=== PATIENT | female | born 1960 | race Caucasian/White ===

== ENCOUNTER 2018-06-29 21:41 | Emergency (ER) | payer OTHER, SELFPAY ==
[2018-06-29 21:43] VITALS: BP 154/102; PULSE 76; RESP 17; TEMP 36.3; O2SAT 98; BMI 46.7
--- NOTE | 2018-06-29 21:47 | DI.RAD.S_ITS ---
PROCEDURE: XR WRIST RT MIN 3V INDICATIONS: Fall with pain in right wrist TECHNIQUE: 4 views of the wrist were acquired. COMPARISON: None. FINDINGS: Bones: No comminuted fracture of the distal radius is noted. Fracture lucencies extend the radiocarpal and distal radial ulnar joints. Scaphoid view: Scaphoid is intact Soft tissues: No suspicious soft tissue calcifications. IMPRESSION: Comminuted, intra-articular distal radius fracture. Dictated by: Dian Roberts MD, PhD on 06/30/2018 at 8:28 Approved by: Dian Roberts MD, PhD on 06/30/2018 at 8:29
--- NOTE | 2018-06-29 21:48 | DI.RAD.S_ITS ---
PROCEDURE: XR FOREARM RT 2V INDICATIONS: Fall with pain to right wrist TECHNIQUE: 2 views of the forearm were acquired. COMPARISON: None. FINDINGS: Bones: Comminuted, intra-articular distal radius fracture noted. Soft tissues: No suspicious soft tissue calcifications or masses. IMPRESSION: Distal radius fracture. Dictated by: Dian Roberts MD, PhD on 06/30/2018 at 8:29 Approved by: Dian Roberts MD, PhD on 06/30/2018 at 8:30
[2018-06-29 22:20] VITALS: BP 139/81; PULSE 74; RESP 17; O2SAT 98
--- NOTE | 2018-06-29 22:26 | ED.UPPEXIN ---
HPI - Extremity Injury (Upper) General Chief Complaint: Extremity Injury, Upper Stated Complaint: Fell on ice, thinks broken R arm Time Seen by Provider: 06/29/18 22:22 Source: patient Mode of arrival: ambulatory Limitations: no limitations History of Present Illness HPI narrative: Patient is a 57-year-old female who presents with right pain in wrist deformity. She fell just prior to arrival on the ice. She fell into a puddle landing on her bottom with her hands out to catch her. No hip injury or shoulder elbow injury. MD complaint: injury to: right and wrist Onset (ago): minute(s) Context: fall and direct blow Associated symptoms: denies other symptoms Treatments prior to arrival: cold therapy Related Data Previous Rx's Medication Instructions Recorded metoprolol tartrate 50 mg tablet 50 mg PO BID #180 tab 11/28/17 oxybutynin chloride 5 mg tablet 5 mg PO BIDAC #180 tab 01/13/18 venlafaxine ER 75 mg 75 mg PO QDAY #90 tab 01/13/18 tablet,extended release 24 hr nortriptyline 25 mg capsule 25 mg PO BEDTIME #30 cap 06/09/18 hydrocodone-acetaminophen 1 tab PO Q4-6H PRN #14 tab 06/29/18 Allergies Allergy/AdvReac Type Severity Reaction Status Date / Time adhesive [ADHESIVE] Allergy Severe skin Verified 06/29/18 21:47 sloughing Review of Systems Review of Systems GENERAL: Denies chills,fever HEENT: Denies throat pain RESPIRATORY: Denies dyspnea, cough, wheezing CARDIOVASCULAR: Denies chest pain, palpitations GASTROINTESTINAL: Denies nausea, vomiting MUSCULOSKELETAL: see HPI SKIN: No rash, no laceration, no pruritus NEUROLOGIC: Denies weakness, dizziness, headache, numbness 8 point review of systems is negative except for those stated above and HPI PFSH Medical History Morbid obesity (Chronic) Sleep apnea (Chronic) Abnormal Pap smear of cervix (Resolved) Surgical History Surgical procedure planned (Resolved) Status post breast augmentation (~1999) Status post laparoscopic cholecystectomy (~2003) Family History Father CML (chronic myelocytic leukemia) IgG deficiency COPD (chronic obstructive pulmonary disease) Grandmother Dementia Mother Breast cancer Mother Dementia Grandfather Prostate cancer Sister Thyroid cancer Social History Smoking Status: Former smoker Family History Father CML (chronic myelocytic leukemia) IgG deficiency COPD (chronic obstructive pulmonary disease) Grandmother Dementia Mother Breast cancer Mother Dementia Grandfather Prostate cancer Sister Thyroid cancer Social History Smoking Status: Former smoker Comment: tetanus up-to-date Exam Initial Vital Signs Initial Vital Signs: Vital Signs Temperature 97.3 F L 06/29/18 21:43 Pulse Rate 76 06/29/18 21:43 Respiratory Rate 17 06/29/18 21:43 Blood Pressure 154/102 H 06/29/18 21:43 Pulse Oximetry 98 06/29/18 21:43 GENERAL: Well-appearing, well-nourished and in no acute distress. CARDIOVASCULAR: peripheral pulses in tact, cap refill <2 sec RESPIRATORY: No respiratory distress, speaks in full sentences without difficulty EXTREMITIES: Normal range of motion, no clubbing or edema. Neurovascularly intact Right upper extremity pain at wrist mild swelling neurovascularly intact able to move all fingers so painful. Elbow is nontender shoulder no deformity NEUROLOGICAL: Cranial nerves II through XII grossly intact. Normal gait and speech. SKIN: Warm, dry, no petechiae, no rashes or lesions. Procedures Orthopedic Splinting/Casting Injury #1: Side: right Upper Extremity Injury Location: wrist Upper Extremity Immobilizer: sugar tong splint Post splinting neuro exam: intact Post splinting vascular exam: intact Placed by: Nursing Course Orders Ordered: ED Orders 06/29/18 21:47 XR wrist RT min 3V Stat 06/29/18 21:48 XR forearm RT 2V Stat Discontinued Medications Hydrocodone Bitart/Acetaminophen (Vicodin Prepack) 1 bottle MISC SEEINSTR ONE Stop: 06/29/18 23:23 Last Admin: 06/29/18 23:23 Dose: 1 bottle Vital Signs - 8 hr 06/29/18 21:43 06/29/18 22:20 06/29/18 23:07 Temperature 97.3 F L Pulse Rate 76 74 78 Respiratory Rate 17 17 16 Blood Pressure 154/102 H Blood Pressure [Left Wrist] 139/81 147/85 H Pulse Oximetry 98 98 97 MDM - Extremity Injury (Upper) Imaging Data right wrist x-ray: Attestation: I personally reviewed and interpreted this imaging study as follows: My impression: distal radial fracture with minimal displacement and angulation right forearm x-ray: Attestation: I personally reviewed and interpreted this imaging study as follows: My impression: distal radial fracture Discharge Plan Departure Patient Disposition: Home Clinical Impression: Distal radius fracture, right Qualifiers: Encounter type: initial encounter Fracture type: closed Fracture morphology: unspecified fracture morphology Qualified Code(s): S52.501A - Unspecified fracture of the lower end of right radius, initial encounter for closed fracture Discharge Date/Time: 06/29/18 23:25 Interventions: ED Discharge Assessment Last Done: 06/29/18 23:25 Instructions: DI for Wrist Fracture Activity Restrictions/Additional Instructions: *You have been diagnosed with distal radius fracture *What to do: keep arm and splint at all times, use garbage bag while showering use sling while active, elevate, ice *Continue to take medications as directed hydrocodone 1-2 tablets every 6 hr if needed for severe pain *Follow up with your primary care provider in 2-3 days, call Orthopedics tomorrow to schedule follow-up appointment next week *Return to ER if you should have increasing numbness, tingling, pain or any new, worsening or concerning symptoms CONTROLLED SUBSTANCE DISCHARGE (Narcotoic/benzodiazepine/Flexeril/Phenergan) 1. You have been prescribed narcotic medications, it does have acetaminophen/Tylenol/paracetamol in it so do not take extra Tylenol or Tylenol containing products 2. Please understand that we cannot provide further refills of narcotics, benzodiazepines or controlled substances through the ED and her pain management will need to be through your provider. 3. While on these medications you cannot drive or operate heavy machinery. 4. You cannot sign legal documents or perform any duties such as this. 5. As long as you're taking opiate pain medications he should also be taking a stool softener such as Colace, Dulcolax, MiraLAX or prune juice, to help avoid constipation. Prescriptions: New hydrocodone-acetaminophen 5-325 mg tablet 1 tab PO Q4-6H PRN (Reason: pain) Qty: 14 RF: 0 No Action metoprolol tartrate 50 mg tablet 50 mg PO BID Qty: 180 RF: 1 nortriptyline 25 mg capsule 25 mg PO BEDTIME Qty: 30 RF: 1 venlafaxine 75 mg tablet extended release 24hr 75 mg PO QDAY Qty: 90 RF: 3 oxybutynin chloride 5 mg tablet 5 mg PO BIDAC Qty: 180 RF: 4 Referrals: [facility] [Provider Group] Viktoria Lan DO [Primary Care Provider] -
[2018-06-29 23:07] VITALS: BP 147/85; PULSE 78; RESP 16; O2SAT 97
[2018-06-29] MEDS: HYDROCODONE/ACET 5/325 PREPACK 1 BOTTLE MISC (23:23)
== END 2018-06-29 23:25 | disposition home or self-care (01) ==
PROVIDERS: Emergency Provider Emergency Medicine; Family Provider Family Medicine; PCP Family Medicine
DX: S52.501A Unspecified fracture of the lower end of right radius, initial encounter for closed fracture (principal); W01.0XXA Fall on same level from slipping, tripping and stumbling without subsequent striking against object, initial encounter
CPT/HCPCS: 29125; 73090; 73110; 99283

== ENCOUNTER 2018-07-04 07:37 | Day surgery (SDC) | payer OTHER, SELFPAY ==
[2018-07-03 08:38] VITALS: BMI 47.6
--- NOTE | 2018-07-04 08:06 | PM.HP.1 ---
History of Present Illness <Sherri Mercedes PA-C - Last Filed: 07/04/18 08:58> Date Patient Seen: 07/04/18 Chief complaint: 60068 RIGHT RADIUS FX Narrative: Patient seen in preoperative area after sustaining a right distal radius fracture on 06/29/2018 after falling on the ice. She fell into a puddle landing on her bottom with her hands out to catch her. She denies loss of consciousness, hip injury, shoulder, or elbow injury. She was seen in the ED on 06/29/18 and was placed in a sugar-tong splint. She denies numbness/tingling, SOB, or CP. Patient is right-hand dominant. She currently describes her pain as a 4/10 and is currently tolerating it. Dr. Baeza was consulted on this patient and determined that this injury should be fixed surgically due to the posterior comminution. Patient has a history of morbid obesity, reactive airway disease that is stable, obstructive sleep apnea with CPAP use, and HTN controlled with metoprolol. Patient works as a nurse at [employer]. Patient History <Sherri Mercedes PA-C - Last Filed: 07/04/18 08:58> Medical History Fibromyalgia (Chronic) Closed Colles' fracture of right radius (Acute 06/29/18) Former smoker (Acute) Reactive airway disease that is not asthma (Acute) Hypertension (Chronic) Morbid obesity (Chronic) Sleep apnea (Chronic) Abnormal Pap smear of cervix (Resolved) Surgical History Surgical procedure planned (Resolved) Status post breast augmentation (~1999) Status post laparoscopic cholecystectomy (~2003) Family History Father CML (chronic myelocytic leukemia) IgG deficiency COPD (chronic obstructive pulmonary disease) Grandmother Dementia Mother Breast cancer Mother Dementia Grandfather Prostate cancer Sister Thyroid cancer Social History household members: spouse Smoking Status: Former smoker alcohol intake: current Family & Social History Family History Father CML (chronic myelocytic leukemia) IgG deficiency COPD (chronic obstructive pulmonary disease) Grandmother Dementia Mother Breast cancer Mother Dementia Grandfather Prostate cancer Sister Thyroid cancer Tobacco & Substance use: Smoking Status Former smoker alcohol intake current alcohol intake frequency holiday/special occasion Substance Use Type does not use Meds <Sherri Mercedes PA-C - Last Filed: 07/04/18 08:58> Home Medications Medication Instructions Recorded Confirmed Type metoprolol tartrate 50 mg tablet 50 mg PO BID #180 tab 11/28/17 07/04/18 Rx oxybutynin chloride 5 mg tablet 5 mg PO BIDAC #180 tab 01/13/18 07/04/18 Rx venlafaxine ER 75 mg 75 mg PO QDAY #90 tab 01/13/18 07/04/18 Rx tablet,extended release 24 hr nortriptyline 25 mg capsule 25 mg PO BEDTIME #30 cap 06/09/18 Rx hydrocodone-acetaminophen 1 tab PO Q4-6H PRN #14 tab 06/29/18 Rx hydrocodone-acetaminophen 1 tab PO Q4HR PRN #30 tab 07/04/18 Rx Allergies Allergy/AdvReac Type Severity Reaction Status Date / Time adhesive [ADHESIVE] Allergy Severe skin Verified 06/29/18 21:47 sloughing Review of Systems <Sherri Mercedes PA-C - Last Filed: 07/04/18 08:58> Review of Systems All systems reviewed & are unremarkable except as noted in HPI and below Constitutional Constitutional: Denies chills, Denies fever(s), Denies frequent falls and Denies headache(s) ENT Ears, Nose, Mouth, and Throat: No headache(s) Cardiovascular Cardiovascular: Denies chest pain, Denies chest pain at rest, Denies chest pain with activity, Denies fainting, Denies shortness of breath and Denies shortness of breath with activity Respiratory Respiratory: Denies chest congestion, Denies cough, Denies dyspnea and Denies dyspnea on exertion Gastrointestinal Gastrointestinal: Denies abdominal pain, Denies coffee ground emesis, Denies nausea, Denies vomiting and Denies hematemesis Musculoskeletal Musculoskeletal: Reports arthralgias (right wrist), Reports joint swelling (right wrist) and Denies numbness Neurologic Neurologic: Denies confusion, Denies syncope, Denies frequent falls, Denies headache(s) and Denies numbness Psychiatric Psychiatric: Denies confusion Endocrine Endocrine: Reports system reviewed and no additional complaints, except as documented Hematologic/Lymphatic Hematologic/Lymphatic: Reports system reviewed and no additional complaints, except as documented Exam <POLLY Hillman Last Filed: 07/04/18 08:58> Narrative Exam Narrative: Well-developed well-nourished no acute distress. Alert and oriented x3. Resp Effort & Inspection: normal respiratory effort, able to speak in complete sentences, normal respiratory pattern, no audible wheezes, no cough, respiratory effort not decreased, not labored, no nasal flaring, no respiratory distress, no stridor, not tachypneic and no tracheal deviation Auscultation: clear to auscultation bilaterally Cardio Rate: regular rate Rhythm: regular rhythm Heart Sounds: S1 normal and S2 normal Other: Capillary refill <2 seconds GI Inspection: large pannus and obesity Palpation: soft and No guarding Auscultation: normal bowel sounds Neuro General: alert, oriented x3, moves all extremities, normal light touch, pain and propioception and CN's II-XI intact bilaterally Cranial Nerves: PERRL, able to rotate head bilaterally and able to elevate shoulders bilaterally Cognition: normal cognition Speech: speech normal Gait: normal gait Motor: muscle tone normal throughout Sensory Exam: no sensory deficits noted Extrem General: No normal to inspection (swelling right fingers, arm in sugar tong splint), capillary refill normal and No no joint enlargement (Swelling right wrist/hand) Right upper extremity: shoulder/upper arm Details: normal to inspection, axillary nerve sensory function normal and normal ROM; no tenderness and no swelling and wrist Details: abnormal to inspection, tenderness Location: of the distal radius, swelling Location: of the dorsal wrist and of the volar wrist and warmth Location: of the dorsal wrist and of the volar wrist Left upper extremity: normal to inspection, full ROM, normal capillary refill and no joint enlargement Right lower extremity: normal to inspection Left lower extremity: normal to inspection Objective <POLLY Hillman Last Filed: 07/04/18 08:58> Imaging Right wrist x-ray: My impression: Intra-articular distal radius fracture that is comminuted. No signs of scaphoid involvement. Radiologist's impression: Comminuted, intra-articular distal radius fracture. Assessment & Plan <Sherri Mercedes PA-C - Last Filed: 07/04/18 08:58> Assessment & Plan narrative: 1. Comminuted right distal radius fracture-patient has consented to a closed reduction and percutaneous pinning of the wrist by Dr. Baeza. The nature of the procedure including the risks, benefits, alternatives, postoperative course and expected outcome were discussed. Risks including but not limited to tendon injury, non-union of fracture, hardware breakage or failure, nerve injury, residual swelling, persistent incisional tenderness, or wound healing and infection were discussed in detail. We also discussed concerns regarding anesthesia. The patient will discuss their anesthesia further with the anesthesiologist. The patient verbalized understanding of these risks prior to consenting for surgery. She has been NPO since yesterday. She took her metoprolol last night. She will receive 3 g Ancef prior to surgery. She will be placed in a short-arm splint postoperatively. She will follow up with the office in 10-14 days for x-ray and re-examination. Time Spent With Patient Time with patient: 25 - 35 minutes Quality <Sherri Mercedes PA-C - Last Filed: 07/04/18 08:58> VTE Deep Vein Thrombosis/Pulmonary Embolism Present on Admission: No
[2018-07-04 08:15] VITALS: BP 213/124; PULSE 68; RESP 16; TEMP 37; O2SAT 94; BMI 47.6
[2018-07-04] MEDS: LACTATED RINGERS 1,000 ML 42 ML IV (08:37)
[2018-07-04] MEDS: CEFAZOLIN VIAL 3 GM in SODIUM CHLORIDE 0.9% 100 ML 200 ML IV (09:40)
--- NOTE | 2018-07-04 09:55 | SUR.OPER ---
Supine on padded OR bed, head on pillow, right arm on arm table under control of surgeon, left arm secured on padded arm boards at <90 degrees abduction, legs uncrossed, safety belt at thigh, tape over blanket over lower legs.
[2018-07-04] MEDS: BUPIVACAINE 0.5% (PF) VIAL 30 ML INJ (09:59)
[2018-07-04 10:19] VITALS: BP 161/97; PULSE 69; RESP 12; TEMP 37.1; O2SAT 96
[2018-07-04 10:25] VITALS: BP 132/68; PULSE 76; RESP 14; O2SAT 94
[2018-07-04] MEDS: fentaNYL 100 MCG/2 ML INJ 50 MCG IV ×2 (10:25→10:30)
[2018-07-04 10:30] VITALS: BP 126/75; PULSE 72; RESP 13; O2SAT 94
[2018-07-04] MEDS: HYDROMORPHONE 2 MG INJ 0.5 MG IV ×3 (10:37→10:50)
--- NOTE | 2018-07-04 10:37 | PM.OP.1 ---
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 She slipped and fell on ' Day sustaining the above-noted fracture. My office was contacted for definitive management. Due to the angulated nature of the fracture, closed reduction and percutaneous pin fixation was recommended. The patient has agreed to this after discussion the risks benefits and alternatives. Risks discussed included but were not limited to failure to improve either pain or function, pin tract infection, nerve damage, deep venous thrombosis, pulmonary embolism, myocardial infarction and . We did discuss the possibility of plate fixation however given the fracture morphology the outcome should be similar with this less invasive procedure. Surgeon: Ishaan Baeza Click Yes if Unassisted: Yes Anesthesia Type: General and Local Operative Notes Findings: [place] volar angulation of the distal radius which corrected to neutral with closed reduction. Closure Type: not applicable Specimen(s): none sent Prosthetic devices, grafts, tissues, transplants, or devices: Three 0.062 in K-wires were used. Applied: implant(s) Estimated Blood Loss (mL): 2 Blood products transfused: none Tourniquet time (min): 0 Procedure in detail: The patient was seen in the preoperative area where she confirmed her right hand was the operative site this was marked with my initials. She received preoperative antibiotics and was taken to the operating room and placed on the operating room table in supine position. She underwent induction of a general anesthetic. After the induction of satisfactory anesthesia, a tourniquet was placed about the proximal right arm and her splint was removed. The right arm was prepared from the fingertips to the tourniquet with ChloraPrep in the usual fashion and draped through sterile drapes. Under fluoroscopic guidance a reduction was performed. Adequate reduction was confirmed both in the AP and lateral views. Two K-wires were then placed from the dorsal distal fragment to the volar proximal fragment. These were loaded to increase volar pressure and improve the angulation of the fracture fragment. A 3rd K-wire was placed through the radial styloid. All 3 K-wires were placed by making a skin incision with a 15 blade, spreading to the bone with a hemostat and then placing the K-wire in an attempt to avoid damage of cutaneous nerves. The position of the K-wires and the fracture was confirmed as being satisfactory in the AP and lateral views on fluoroscopy. The K-wires were cut and bent. A hematoma block was performed with 10 mL 0.5% Marcaine for postoperative pain control. They were dressed with Xeroform and a drain sponge. An additional 4 x 4 was placed over the pins followed by cast padding and dorsal and volar slab splints. The tourniquet was never inflated. After the splint set up, the patient was transferred to the recovery room in good condition having tolerated the procedure well. Complications: none Condition: stable Disposition: PACU Plan for aftercare: The patient will be discharged today. She will follow up in my office in 2 weeks. At that visit she will be changed to a short-arm cast which she will wear for an additional 2 weeks. At that point the cast will be removed and the pins removed. She will then be placed back in a short-arm cast for an additional 4 weeks. At that point a decision will be made as to whether not she needs additional bracing for 1 more month.
[2018-07-04 10:40] VITALS: BP 120/75; PULSE 66; RESP 12; O2SAT 93
[2018-07-04] MEDS: HYDROCODONE/ACET 5/325 TABLET 1 TAB PO (10:52)
[2018-07-04] MEDS: ONDANSETRON 4 MG/2 ML INJ IV (10:59)
[2018-07-04 11:08] VITALS: BP 142/86; PULSE 69; RESP 15; TEMP 36.3; O2SAT 93
== END 2018-07-04 11:26 | disposition home or self-care (01) ==
PROVIDERS: PCP Family Medicine; Visit Provider Orthopaedic Surgery
PROC: (CPT 25606; principal; 2018-07-04 09:15)
DX: S52.531A Colles' fracture of right radius, initial encounter for closed fracture (principal); W00.0XXA Fall on same level due to ice and snow, initial encounter; E66.01 Morbid (severe) obesity due to excess calories; I10 Essential (primary) hypertension; G47.30 Sleep apnea, unspecified; M79.7 Fibromyalgia; Z87.891 Personal history of nicotine dependence
CPT/HCPCS: 25606; J0690; J1100; J1170; J2405; J2704; J3010

== ENCOUNTER 2019-04-06 06:21 | Day surgery (SDC) | payer OTHER, SELFPAY ==
[2019-04-03 09:04] VITALS: BMI 35.0
[2019-04-06] VITALS (9 sets, daily range): BP systolic 132–149; BP diastolic 78–93; PULSE 63–83; RESP 9–20; TEMP 36.1–36.5; O2SAT 93–97; BMI 51.8
--- NOTE | 2019-04-06 | PATH_ITS ---
[facility] Accession Number: [id number] . 01 Material submitted: . PART A: endometrium - ENDOMETRIAL CURETTINGS PART B: endocervix - ENDOCERVICAL CURETTINGS . 01 Clinical history: . HYSTEROSCOPY D/C . 02 Diagnosis: A. Endometrial Curettings: Portions of disordered proliferative endometrium with patchy regions of cystic atrophy; negative for glandular hyperplasia, cytologic atypia, and malignancy. . B. Endocervical Curettings: Polypoid fragments of lower uterine segment/endometrium with features of disordered proliferative endometrium and cystic atrophy; negative for glandular hyperplasia, cytologic atypia, and malignancy. Detached glandular fragments, possibly from endocervix. Please see comment. [facility] 04/09/2019 1127 Local . 02 Comment: Part B: Due to the scant nature of possible endocervical glandular elements in this biopsy, it may not be entirely technical account representative of this patient's endocervix. Additional sampling could be considered, if clinically appropriate. . 02 Electronically signed: . Joan Raymond MD, Pathologist NPI- [id number] . 01 Gross description: . Part A: ENDOMETRIAL CURETTINGS: Received in formalin are minute fragments of mucoid and hemorrhagic material measuring 0.7 x 0.7 x 0.3 cm in aggregate. Submitted in toto in 1 cassette. Part B: ENDOCERVICAL CURETTINGS: Received in formalin are minute fragments of mucoid and hemorrhagic material measuring 0.4 x 0.4 x 0.2 cm in aggregate. Submitted in toto in 1 cassette. /[facility] [place]/06[place] 1936 Local . 02 Pathologist provided ICD-10: N95.0 . 02 CPT . 527141, [id number] Performed at: 01 [facility] [address] [id number] MD John Neri MD Phone: [phone] Performed at: 02 [facility] [address] [place] [id number] MD Gunjan Javed MD Phone: [phone]
[2019-04-06] MEDS: LACTATED RINGERS 1,000 ML 100 ML IV (07:46)
--- NOTE | 2019-04-06 07:50 | PM.PREOP ---
Pre-operative Note Interval Note History & Physical reviewed/Exam performed by Physician: Yes Changes to H&P: No
--- NOTE | 2019-04-06 08:34 | P.OP_ITS ---
Operative Date/Time/Diagnoses Date of procedure: 04/06/19 Time of procedure: 07:50 Pre-op diagnosis: postmenopausal bleeding Post-op diagnosis: same Procedure & Clinicians Procedure: diagnostic hysteroscopy/D&C Same procedure as scheduled: Yes Indications: postmenopausal bleeding Surgeon: Blanca Allison Computer Game Designer: Esperanza Guevara Anesthesia Type: Sedation Operative Notes Findings: Small endometrial polyp on anterior wall in lower uterine segment. Copious endometrial tissue throughout cavity with scant calcifications at fundus. Normal vulva, normal post-cone biopsy cervix. Specimen(s): other (endocervical curettings, endometrial curettings) Estimated Blood Loss (mL): 0 Procedure in detail: IVF: 300ccs UOP: NA The patient was taken to the operating room after informed consent was obtained. She was placed in the dorsal lithotomy position and prepped and drapped in the normal sterile fashion. A speculum was placed in the vagina and a tenaculum used to grasp the anterior lip of the cervix. The cervix was dilated to 8mm with Hegar dilators without difficulty. The hysteroscopy was inserted using sorbitol as a distention medium, with the above findings visualized. The hysteroscope was removed and a gentle curettage performed, with removal of a moderate amount of endometrial tissue. The tenaculum was removed from the cervix with good hemostasis with brief pressure with a sponge stick. The speculum was removed from the vagina. The patient tolerated the procedure well. The patient was taken to the PACU in stable condition. Complications: none Post-operative Condition: stable Disposition: PACU
[2019-04-06] MEDS: fentaNYL 100 MCG/2 ML INJ IV (08:38)
[2019-04-06] MEDS: HYDROCODONE/ACET 5/325 TABLET 1 TAB PO (08:49)
--- NOTE | 2019-04-06 09:02 | SUR.PHASEI ---
report given to Ludy
--- NOTE | 2019-04-06 09:07 | SUR.PHASEI ---
Patient awake, A/O x 4. States she feels a little crampy but states pain is tolerable 2/10.
--- NOTE | 2019-04-06 09:33 | SUR.PHASEII ---
Scant amount of red drainage to monroe-pad. Patient states a little cramping. 2/10 pain. OK to DC home.
== END 2019-04-06 09:50 | disposition home or self-care (01) ==
PROVIDERS: Family Provider Family Medicine; PCP Family Medicine; Visit Provider Obstetrics & Gynecology
PROC: 0UDB8ZZ Extraction of Endometrium, Via Natural or Artificial Opening Endoscopic (ICD-10-PCS; CPT 58558; principal; 2019-04-06 07:45)
DX: N95.0 Postmenopausal bleeding (principal)
CPT/HCPCS: 58558; J1100; J1885; J2405; J2704; J3010

== ENCOUNTER → 2022-06-14 09:45 | Outpatient (CLI) | payer OTHER, SELFPAY ==
[2022-06-14 10:42] LABS: Add Manual Diff / Slide Review NO; Basophils Absolute Auto 100 /uL (0-100); Basophils Percent Auto 0.8 % (0-2); Eosinophils Absolute Auto 400 /uL (0-450); Eosinophils Percent Auto 4.2 % (2-4); Hematocrit 42.5 % (36-46); Hemoglobin 14.3 g/dL (12.0-16.0); Lymphocytes Absolute Auto 2200 /uL (1100-4500); Lymphocytes Percent Auto 24.7 % (25-40); Mean Corpuscular HGB Conc 33.6 % (30-36); Mean Corpuscular Hemoglobin 28.8 PG (26-34); Mean Corpuscular Volume 85.8 fL (80-100); Monocytes Absolute Auto 600 /uL (0-900); Monocytes Percent Auto 6.7 % (3-14); Neutrophils Absolute Auto 5600 /uL (1500-7000); Neutrophils Percent Auto 63.6 % (50-75); Platelet Count 301 X10^3/uL (150-400); Red Blood Cell Count 4.95 X10^6/uL (4.0-5.2); Red Cell Distribution Width 13.9 % (11.6-14.8); White Blood Cell Count 8.8 X10^3/uL (4.5-11.0)
[2022-06-14 11:09] LABS: Alanine Aminotransferase 34 IU/L (<35); Albumin 4.2 g/dL (3.5-5.0); Albumin Globulin Ratio 1.2 (1.0-2.8); Alkaline Phosphatase 112 U/L (38-126); Aspartate Aminotransferase 31 IU/L (14-36); BUN Creatinine Ratio 21.1 (6-22); Bilirubin Total 0.7 mg/dL (0.2-1.3); Blood Urea Nitrogen 15 mg/dL (7-17); Calcium 9.2 mg/dL (8.4-10.2); Carbon Dioxide 31 mmol/L (22-32); Chloride 102 mmol/L (98-107); Cholesterol 214 mg/dL (140-199); Estimated Glomerular Filt Rate > 60 mL/min (>60); Globulin 3.5 g/dL (1.7-4.1); Glucose 108 mg/dL (70-100); HDL Cholesterol 53 mg/dL (40-60); HEMOLYSIS < 15 (0-50); LDL Cholesterol Calculated 121 mg/dL (<100); Potassium 4.2 mmol/L (3.4-5.1); Sodium 139 mmol/L (137-145); Total Protein 7.7 g/dL (6.3-8.2); Triglycerides 199 mg/dL (35-150)
[2022-06-14 11:23] LABS: Creatinine Urine Random 145.9 mg/dL
[2022-06-14 11:25] LABS: Microalbumi Creatinin Ratio Ur 6.1 ug/mg CR (<30); Microalbumin Urine Random 0.9 mg/dL (0-1.6)
[2022-06-14 11:26] LABS: Free T3, Triiodothyronine Free 3.43 pg/mL (2.77-5.27); Free T4, Direct Thyroxine 1.11 ng/dL (0.78-2.19)
[2022-06-14 11:40] LABS: Thyroid Stimulating Hormone 1.96 uIU/mL (0.47-4.68)
[2022-06-14 17:16] LABS: HIV 1 & 2 Ab/Ag 4th Gen Combo NEGATIVE (NEGATIVE); Hep C Virus Ab w/Reflex Quant NEGATIVE s/c (NEGATIVE)
== END ==
PROVIDERS: Family Provider Family Medicine; PCP Nurse Practitioner; Referring Provider Nurse Practitioner; Visit Provider Nurse Practitioner
DX: Z00.00 Encounter for general adult medical examination without abnormal findings (principal); F41.1 Generalized anxiety disorder; Z11.4 Encounter for screening for human immunodeficiency virus [HIV]; Z11.59 Encounter for screening for other viral diseases
CPT/HCPCS: 36415; 80053; 80061; 82043; 82570; 84439; 84443; 84481; 85025; 86803; 87389

== ENCOUNTER → 2022-10-16 08:44 | Outpatient (CLI) | payer OTHER, SELFPAY ==
--- NOTE | 2022-10-16 08:45 | DI.MG.S_ITS ---
BILATERAL DIGITAL SCREENING MAMMOGRAM 3D/2D WITH CAD: 10/16/2022 CLINICAL: Routine screening. Family history of breast cancer. Comparison is made to exams dated: 05/24/2016 ultrasound, 05/24/2016 mammogram, and 09/28/2013 mammogram - [facility]. There are scattered areas of fibroglandular density in the right breast (category b / 25%-50% glandular tissue). The left breast is almost entirely fatty (category a/<25% glandular tissue). Current study was also evaluated with a Computer Aided Detection (CAD) system. There is a focal asymmetry in the left breast at 1 o'clock middle depth. No other significant masses, calcifications, or other findings are seen in either breast. IMPRESSION: INCOMPLETE: NEEDS ADDITIONAL IMAGING EVALUATION The focal asymmetry in the left breast is indeterminate. Additional views with possible ultrasound are recommended. Based on the Tyrer Cuzick model (a risk assessment model) the patient's lifetime risk is 7.7% and her 10 year risk is 3.4%. According to the ACR, ACS, and NCCN guidelines, an annual breast MRI exam along with mammogram is recommended if the patient's lifetime risk is 20% or greater. This exam was interpreted at Station ID: [id number]. NOTE: For mammograms, a report in lay terms will be sent to the patient. Approximately 15% of breast malignancies will not be visualized mammographically. In the management of a palpable breast mass, a negative mammogram must not discourage biopsy of a clinically suspicious lesion. Electronically Signed By: Elva clifton/:10/18/2022 09:09:17 letter sent: Additional Imaging Needed ACR BI-RADS Category 0: Incomplete 3340F
== END ==
PROVIDERS: Family Provider Family Medicine; PCP Nurse Practitioner; Referring Provider Nurse Practitioner; Visit Provider Nurse Practitioner
DX: Z12.31 Encounter for screening mammogram for malignant neoplasm of breast (principal)
CPT/HCPCS: 77063; 77067

== ENCOUNTER → 2022-11-04 08:31 | Outpatient (CLI) | payer OTHER, SELFPAY ==
--- NOTE | 2022-11-04 | DI.MG.S_ITS ---
UNILATERAL LEFT DIGITAL DIAGNOSTIC MAMMOGRAM 3D/2D WITH ADDITIONAL VIEWS: 11/04/2022 CLINICAL: Additional evaluation requested from prior study. Comparison is made to exams dated: 10/16/2022 mammogram, 05/24/2016 mammogram, 09/28/2013 mammogram, and 05/24/2016 [facility]. The left breast is almost entirely fatty (category a/<25% glandular tissue). There is a 0.7 cm oval focal asymmetry with a circumscribed margin and punctate calcifications in the left breast at 3 o'clock anterior depth. This is seen in additional views. No other significant masses or calcifications are seen in the breast. IMPRESSION: INCOMPLETE: NEEDS ADDITIONAL IMAGING EVALUATION The 0.7 cm oval focal asymmetry in the left breast is indeterminate. An ultrasound is recommended. Based on the Tyrer Cuzick model (a risk assessment model) the patient's lifetime risk is 7.7% and her 10 year risk is 3.4%. According to the ACR, ACS, and NCCN guidelines, an annual breast MRI exam along with mammogram is recommended if the patient's lifetime risk is 20% or greater. This exam was interpreted at Station ID: [id number]. NOTE: For mammograms, a report in lay terms will be sent to the patient. Approximately 15% of breast malignancies will not be visualized mammographically. In the management of a palpable breast mass, a negative mammogram must not discourage biopsy of a clinically suspicious lesion. Electronically Signed By: Aaron becker/olman:11/04/2022 09:59:05 ACR BI-RADS Category 0: Incomplete 3340F
--- NOTE | 2022-11-04 08:32 | DI.US.S_ITS ---
LIMITED ULTRASOUND OF LEFT BREAST AND AXILLA: 11/04/2022 CLINICAL: Patient returns today to evaluate a focal asymmetry in the left breast. Comparison is made to exams dated: 11/04/2022 mammogram, 10/16/2022 mammogram, 05/24/2016 ultrasound, 05/24/2016 mammogram, and 09/28/2013 mammogram - [facility]. Color flow ultrasound of the left breast 3 o'clock, and axilla regions was performed. Jones scale images of the real-time examination were reviewed. There is a 0.7 cm x 0.4 cm x 0.3 cm oval cyst with a septated internal wall in the left breast at 3 o'clock anterior depth 5 cm from the nipple. This oval cyst is anechoic with posterior acoustic enhancement. This correlates with mammography findings. Color flow imaging demonstrates that there is no vascularity present. No significant abnormalities were seen sonographically in the left axilla. IMPRESSION: PROBABLY BENIGN The 0.7 cm x 0.4 cm x 0.3 cm oval cyst in the left breast is consistent with a complicated cyst and is probably benign. A follow-up left ultrasound in 6 months is recommended to demonstrate stability. This exam was interpreted at Station ID: [id number]. Electronically Signed By: Aaron becker/olman:11/04/2022 09:58:35 letter sent: Followup Recommended Ultrasound BI-RADS: 3 Probably benign
== END ==
PROVIDERS: Family Provider Family Medicine; PCP Nurse Practitioner; Referring Provider Nurse Practitioner; Visit Provider Nurse Practitioner
DX: R92.8 Other abnormal and inconclusive findings on diagnostic imaging of breast (principal); N60.02 Solitary cyst of left breast
CPT/HCPCS: 76642; 77065; G0279

== ENCOUNTER → 2023-10-17 13:57 | Outpatient (CLI) | payer OTHER, SELFPAY ==
[2023-10-17 14:48] LABS: Hematocrit 41.4 % (36-46); Hemoglobin 14.2 g/dL (12.0-16.0); Mean Corpuscular HGB Conc 34.1 % (30-36); Mean Corpuscular Hemoglobin 29.7 PG (26-34); Mean Corpuscular Volume 86.8 fL (80-100); Platelet Count 314 X10^3/uL (150-400); Red Blood Cell Count 4.77 X10^6/uL (4.0-5.2); Red Cell Distribution Width 13.7 % (11.6-14.8); White Blood Cell Count 10.6 X10^3/uL (4.5-11.0)
[2023-10-17 15:34] LABS: Creatinine Urine Random 91.02 mg/dL
[2023-10-17 15:36] LABS: Alanine Aminotransferase 28 IU/L (<35); Albumin 4.1 g/dL (3.5-5.0); Albumin Globulin Ratio 1.4 (1.0-2.8); Alkaline Phosphatase 131 U/L (38-126); Aspartate Aminotransferase 27 IU/L (14-36); BUN Creatinine Ratio 21.5 (6-22); Bilirubin Total 0.9 mg/dL (0.2-1.3); Blood Urea Nitrogen 17 mg/dL (7-17); Calcium 9.4 mg/dL (8.4-10.2); Carbon Dioxide 30 mmol/L (22-32); Chloride 106 mmol/L (98-107); Cholesterol 213 mg/dL (140-199); Estimated Glomerular Filt Rate > 60 mL/min (>60); Globulin 2.9 g/dL (1.7-4.1); Glucose 96 mg/dL (80-110); HDL Cholesterol 59 mg/dL (40-60); HEMOLYSIS < 15 (0-50); LDL Cholesterol Calculated 105 mg/dL (<100); Potassium 4.5 mmol/L (3.4-5.1); Sodium 138 mmol/L (137-145); Triglycerides 245 mg/dL (35-150)
[2023-10-17 15:41] LABS: Microalbumin Urine Random 5.2 mg/dL (0-1.6)
[2023-10-17 15:53] LABS: Free T3, Triiodothyronine Free 3.17 pg/mL (2.77-5.27); Free T4, Direct Thyroxine 0.96 ng/dL (0.78-2.19)
[2023-10-17 16:07] LABS: Thyroid Stimulating Hormone 2.57 uIU/mL (0.47-4.68)
== END ==
PROVIDERS: Family Provider Family Medicine; PCP Nurse Practitioner; Referring Provider Nurse Practitioner; Visit Provider Nurse Practitioner
DX: Z00.00 Encounter for general adult medical examination without abnormal findings (principal)
CPT/HCPCS: 36415; 80053; 80061; 82043; 82570; 84439; 84443; 84481; 85027; 93005

== ENCOUNTER → 2023-11-03 09:13 | Outpatient (CLI) | payer OTHER, SELFPAY ==
--- NOTE | 2023-11-03 09:14 | DI.US.S_ITS ---
LIMITED ULTRASOUND OF LEFT BREAST AND AXILLA: 11/03/2023 CLINICAL: 6 month follow-up of cysts. Comparison is made to exams dated: 11/03/2023 mammogram, 11/04/2022 ultrasound, 11/04/2022 mammogram, 10/16/2022 mammogram, 05/24/2016 ultrasound, and 05/24/[address] mamm[address] - [facility]. Color flow and real-time ultrasound of the left breast 3 o'clock, and axilla regions were performed. Jones scale images of the real-time examination were reviewed. There is a stable 0.8 cm x 0.4 cm x 0.2 cm oval cyst with a septated internal wall in the left breast at 3 o'clock anterior depth 5 cm from the nipple. This correlates with mammography findings. IMPRESSION: PROBABLY BENIGN The stable 0.8 cm x 0.4 cm x 0.2 cm oval cyst in the left breast is consistent with apocrine metaplasia and is probably benign. A follow-up mammogram and an ultrasound in 6 months is recommended to demonstrate stability. This exam was interpreted at Station ID: [id number]. Electronically Signed By: Himanshu singh/olman:11/03/2023 11:06:13 letter sent: Followup Recommended Ultrasound BI-RADS: 3 Probably benign
--- NOTE | 2023-11-03 09:14 | DI.MG.S_ITS ---
BILATERAL DIGITAL DIAGNOSTIC MAMMOGRAM 3D/2D: 11/03/2023 CLINICAL: Patient returns for a 6 month follow up of the left breast, due for bilateral exam. Comparison is made to exams dated: 11/04/2022 mammogram, 10/16/2022 mammogram, 05/24/2016 mammogram, and 09/28/2013 mammogram - [facility]. There are scattered areas of fibroglandular density in the right breast (category b / 25%-50% glandular tissue). The left breast is almost entirely fatty (category a/<25% glandular tissue). There is a stable 0.6 cm oval focal asymmetry in the left breast at 3 o'clock middle depth. This is seen in additional views. No other significant masses, calcifications, or other findings are seen in either breast. IMPRESSION: INCOMPLETE: NEEDS ADDITIONAL IMAGING EVALUATION The stable 0.6 cm oval focal asymmetry in the left breast is indeterminate. An ultrasound is recommended. Based on the Tyrer Cuzick model (a risk assessment model) the patient's lifetime risk is 8.9% and her 10 year risk is 4.1%. According to the ACR, ACS, and NCCN guidelines, an annual breast MRI exam along with mammogram is recommended if the patient's lifetime risk is 20% or greater. This exam was interpreted at Station ID: [id number]. NOTE: For mammograms, a report in lay terms will be sent to the patient. Approximately 15% of breast malignancies will not be visualized mammographically. In the management of a palpable breast mass, a negative mammogram must not discourage biopsy of a clinically suspicious lesion. Electronically Signed By: Himanshu singh/olman:11/03/2023 11:04:35 ACR BI-RADS Category 0: Incomplete 3340F
== END ==
PROVIDERS: Family Provider Family Medicine; PCP Nurse Practitioner; Referring Provider Nurse Practitioner; Visit Provider Nurse Practitioner
DX: R92.8 Other abnormal and inconclusive findings on diagnostic imaging of breast (principal); N60.02 Solitary cyst of left breast; Z80.3 Family history of malignant neoplasm of breast; Z98.890 Other specified postprocedural states
CPT/HCPCS: 76642; 77066; G0279

== ENCOUNTER 2023-11-11 07:56 | Day surgery (SDC) | payer OTHER, SELFPAY ==
[2023-11-11 08:31] VITALS: BP 155/91; PULSE 90; RESP 16; TEMP 37.2; O2SAT 98
[2023-11-11] MEDS: LACTATED RINGERS 1,000 ML 42 ML IV (08:40)
--- NOTE | 2023-11-11 09:01 | P.HP_ITS ---
History of Present Illness History of Present Illness Date Patient Seen: 11/11/23 Time Patient Seen: 09:01 Chief complaint: Screening Colonoscopy Narrative: 62-year-old woman here for screening colonoscopy. Last colonoscopy 10 years ago normal. No abdominal concerns at this point. No family history of colon cancer. [facility] Medical History Class 3 obesity Hx of reduction of closed fracture (06/29/18) History of multiple miscarriages H/O vaginal delivery Reactive airway disease that is not asthma Hypertension Fibromyalgia Closed Colles' fracture of right radius (06/29/18) Former smoker Abnormal Pap smear of cervix Morbid obesity Sleep apnea Surgical History History of bilateral breast reduction surgery H/O cone biopsy of cervix Surgical procedure planned Status post laparoscopic cholecystectomy (~2003) Family History Father CML (chronic myelocytic leukemia) IgG deficiency COPD (chronic obstructive pulmonary disease) Grandmother Dementia Mother Breast cancer Mother Dementia Grandfather Prostate cancer Sister Thyroid cancer Social History household members: spouse Smoking Status: Former smoker alcohol intake: current Meds Home Medications and Allergies Home Medications Medication Instructions Recorded Confirmed Type esomeprazole magnesium 40 mg 40 mg PO DAILY PRN Acid Reflux 03/27/19 10/17/23 History capsule,delayed release (Nexium) ibuprofen 800 mg tablet 800 mg PO .prn pain 11/09/22 10/17/23 History losartan 25 mg tablet 25 mg PO DAILY blood pressure #90 10/17/23 10/17/23 Rx tabs oxybutynin chloride 15 mg 30 mg (2 x 15 mg) PO BEDTIME #180 10/17/23 10/17/23 Rx tablet,extended release 24 hr tabs peg 3350-electrolytes 236 240 ml PO Q10M #4,000 mL 10/25/23 Rx gram-22.74 gram-6.74 gram-5.86 gram solution (Golytely) Allergies Allergy/AdvReac Type Severity Reaction Status Date / Time adhesive [ADHESIVE] Allergy Severe skin Verified 11/11/23 08:26 sloughing Exam Vital Signs (past 8 hours): - 11/11/23 08:31 Temperature 99 F Pulse Rate 90 Respiratory Rate 16 Blood Pressure 155/91 H Pulse Oximetry 98 Oxygen Delivery Method Room Air Oxygen Delivery Method Room Air Narrative Exam Narrative: General adult woman alert oriented no acute distress Chest nonlabored respiration Extremities warm well perfused Assessment & Plan Assessment & Plan narrative: The patient requires colorectal screening and colonoscopy is recommended. Technical details were discussed. Risks, benefits, alternatives explained. Risks including but not limited to myocardial infarction, aspiration, bleeding, pain, missed lesion, incomplete examination, need for further radiographic studies, intestinal injury, and need for major abdominal surgery were discussed. All questions were answered to their satisfaction, and they are in agreement with this plan.
[2023-11-11 09:27] VITALS: BP 95/59; PULSE 89; RESP 15; TEMP 36.1; O2SAT 94
[2023-11-11 09:32] VITALS: BP 106/64; PULSE 86; RESP 18; O2SAT 97
--- NOTE | 2023-11-11 09:33 | P.OP.COLON_ITS ---
Operative Date/Time/Diagnoses Date of procedure: 11/11/23 Time of procedure: 09:34 Pre-op diagnosis: Colorectal screening Procedure & Clinicians Study performed: Screening colonoscopy Same procedure as scheduled: Yes Indications: Colorectal screening Surgeon: Dwight Stark Procedure Notes Procedure in detail: The history and physical was performed/updated and the patient is ASA class is 3. The procedure was discussed in detail with the patient. Potential risks co mplications including infection, bleeding, missed diagnosis, perforation, need for surgery, and were explained. Their questions were answered and informed consent was obtained. Patient was brought to the procedure room and placed standard monitoring equipment. The patient's vital signs were monitored continuously throughout the entire procedure. Prior to starting time-out was performed. The patient was placed in the left lateral recumbent position. Procedural sedation was administered by anesthesia. Examination began with a thorough inspection of the perianal area there was no evidence of fissures, fistulae, external hemorrhoids or cutaneous malignancy. The colonoscopy scope was then placed into the anal canal and was advanced to the cecum, which was identified by the ileocecal valve, the appendiceal orifice and the confluence of the taenia. The scope was then slowly withdrawn examining colon thoroughly in all directions, irrigating it of any residual stool. The scope was retroflexed within the rectum The patient tolerated the procedure well. They will be discharged once criteria are met. The prep was of good/excellent quality. The withdrawl time was 7 minutes. FINDINGS * Tortuous colon required scope stiffening and external compression * Internal hemorrhoids * No polyps Specimen(s): none sent Impression: Normal colonoscopy Post-procedure Recommendations: Colonoscopy in 10 years Disposition: same day surgery
[2023-11-11 09:36] VITALS: BP 116/58; PULSE 84; RESP 15; TEMP 36.1; O2SAT 97
[2023-11-11 09:43] VITALS: BP 126/70; PULSE 80; RESP 16; O2SAT 97
== END 2023-11-11 09:48 | disposition home or self-care (01) ==
PROVIDERS: Family Provider Family Medicine; PCP Nurse Practitioner; Referring Provider Surgery; Visit Provider Surgery
PROC: 0DJD8ZZ Inspection of Lower Intestinal Tract, Via Natural or Artificial Opening Endoscopic (ICD-10-PCS; CPT 45378; principal; 2023-11-11 08:45)
DX: Z12.11 Encounter for screening for malignant neoplasm of colon (principal); K64.8 Other hemorrhoids
CPT/HCPCS: 45378; J2704

== ENCOUNTER → 2023-11-25 09:19 | Outpatient (CLI) | payer OTHER, SELFPAY ==
--- NOTE | 2023-11-25 09:19 | DI.ECHO.S_ITS ---
[facility] : : [address] : : [place] : : [id number] : : Phone: [phone] Echocardiogram Report + + :Name: PAOLA VILLATORO Study Date: 11/25/2023 Height: 66 in : :Hospital ReadingLocation: Weight: 315 lb : : Gender: Female BSA: 2.4 m2 : :: 1960 Age: 63 yrs BP: 144/92 mmHg: :Reason For Study: ESSENTIAL HYPERTENSION : :Ordering Physician: KIERAN, : :SHAWN Performed By: Chio Shea : :Referring: SHAWN ALCARAZ : + + Interpretation Summary The left ventricle is normal in size and wall thickness. The ejection fraction is estimated to be 60-65%. Diastolic parameters suggest probable normal left ventricular diastolic function and normal filling pressures. The right ventricle is normal in size and function. The right ventricular systolic pressure is estimated to be at least 21 mmHg based on an estimated right atrial pressure of 3 mm Hg. The left atrial size is normal. There is no significant valvular heart disease. The ascending aorta is mildly enlarged. Procedure: A two-dimensional transthoracic echocardiogram with color flow and Doppler was performed. The study quality was technically adequate. There is no prior echocardiogram noted for this patient. The patient was in sinus rhythm with heart rates between 58-75 bpm during the exam. Left Ventricle: The left ventricle is normal in size and wall thickness. The ejection fraction is estimated to be 60-65%. Septal motion is consistent with conduction abnormality. There are no focal wall motion abnormalities. Diastolic parameters suggest probable normal left ventricular diastolic function and normal filling pressures. Right Ventricle: The right ventricle is normal in size and function. Atria: The left atrial size is normal. The right atrium is normal in size. There is no Doppler evidence for an interatrial shunt. Mitral Valve: The mitral valve is normal in structure and function. There is trace mitral regurgitation. Aortic Valve: The aortic valve opens well. The aortic valve is trileaflet. There is no aortic valve stenosis. No aortic regurgitation is present. Tricuspid Valve: The tricuspid valve is normal in structure and function. There is trace tricuspid regurgitation. The right ventricular systolic pressure is estimated to be at least 21 mmHg based on an estimated right atrial pressure of 3 mm Hg. Pulmonic Valve: The pulmonic valve leaflets are thin and pliable; valve motion is normal. There is trace pulmonic regurgitation. There is no significant valvular heart disease. Great Vessels: The aortic root is normal size. The ascending aorta is mildly enlarged. The IVC is of normal diameter and collapses greater than 50% with a sniff. This suggests a low right atrial pressure of 3 mm Hg. Pericardium/ Pleura There is no pericardial effusion. There is no pleural effusion. MMode/2D Measurements & Calculations LVIDd: 5.4 cm LVOT diam: 2.0 cm LVIDs: 3.4 cm Ao root diam: 3.7 cm FS: 38.0 % asc Aorta Diam: 3.7 cm IVSd: 0.84 cm Ao Arch Diam (Prox Trans): 3.0 cm LVPWd: 0.97 cm LV joe. diameter/BSA (cm/m^2): 2.2 LV sys. diameter/BSA (cm/m^2): 1.4 LA A2 area: 24.1 cm2 RA long axis: 4.1 cm LA A4 area: 15.6 cm2 RA area: 11.3 cm2 LA length (vol): 5.4 cm RA vol: 26.6 ml LA vol: 59.3 ml RA : 11.0 ml/m2 LA vol index: 24.5 ml/m2 IVC diam: 1.8 cm RVD1 (basal): 3.8 cm RVD2 (mid): 3.4 cm TAPSE: 2.2 cm Doppler Measurements & Calculations Ao V2 max: 126.5 cm/sec LVOT Max Hayden: 97.7 cm/sec Ao V2 mean: 97.3 cm/sec LV V1 max P.8 mmHg Ao max P.4 mmHg LV V1 VTI: 23.8 cm Ao mean P.0 mmHg HAIM(I,D): 2.6 cm2 Ao V2 VTI: 28.9 cm HAIM(V,D): 2.4 cm2 sev ratio: 0.82 HAIM indexed to BSA (cm^2/m^2): 1.1 MV E max hayden: 109.4 cm/sec TR max hayden: 211.8 cm/sec MV A max hayden: 76.1 cm/sec TR max P.9 mmHg MV E/A: 1.4 PA V2 max: 99.0 cm/sec Med Peak E' Hayden: 10.5 cm/sec PA V2 mean: 67.9 cm/sec E/E' med: 10.4 PA mean P.1 mmHg Lat Peak E' Hayden: 12.9 cm/sec PA pr(Accel): 39.6 mmHg E/E' lat: 8.5 E/e' average: 9.5 MV dec time: 0.22 sec SV(LVOT): 75.3 ml Reading Physician:10:54 AM
== END ==
LOC: ECHO 09:19
PROVIDERS: Family Provider Family Medicine; PCP Nurse Practitioner; Referring Provider Nurse Practitioner; Visit Provider Nurse Practitioner
DX: I10 Essential (primary) hypertension (principal); I77.89 Other specified disorders of arteries and arterioles
CPT/HCPCS: 93306

== ENCOUNTER → 2025-02-06 09:26 | Outpatient (CLI) | payer OTHER, SELFPAY ==
--- NOTE | 2025-02-06 09:27 | DI.US.S_ITS ---
US breast BI limited, MM diagnostic mammo BI: 02/06/2025 BI-RADS: 2 CLINICAL: 64-year old female for bilateral diagnostic mammogram and bilateral diagnostic breast ultrasound. Tyrer-Cuzick lifetime risk of 16.5%. Current reported family history of breast cancer: mother. The patient reports skin dimpling (1 to 7 days) in the right breast and nipple abnormality - bruising and itchiness (6 months) in the left breast. The patient had prior bilateral breast biopsies. The patient is status-post reduction mammoplasty. PRIOR EXAMS 11/03/2023, 11/04/2022, 10/16/2022, 05/24/2016. MAMMOGRAPHY TECHNIQUE: 2D and 3D (tomosynthesis) digital mammographic views obtained, with additional images as needed for full coverage. Current study was also evaluated with a Computer Aided Detection (CAD) system. ULTRASOUND TECHNIQUE: TARGETED Bilateral Breast Ultrasound: Real-time ultrasound exam was performed focused to area of clinical and/or imaging concern. Real-time franco scale and color doppler imaging of the area of clinical interest was performed with image documentation. DENSITY B. There are scattered areas of fibroglandular density. MAMMOGRAPHY FINDINGS Right (finding-1): Outer at 9:00, Anterior depth: A skin marker was placed in the area of concern, and no mammographic abnormalities are identified or to account for concern by the patient. No suspicious mass, asymmetry, microcalcification, or other abnormality seen. Left (finding-2): Central, Retroareolar, Far Anterior depth: A skin marker was placed in the area of concern, and no mammographic abnormalities are identified or to account for concern by the patient of nipple symptoms. No suspicious mass, asymmetry, microcalcification, or other abnormality seen. Left (finding-3): Outer Central, Anterior depth, measuring 0.7cm: Correlating with prior imaging concern, there is a stable focal asymmetry present. This finding has demonstrated two years of stability and is consistent with a benign etiology. ULTRASOUND FINDINGS Right (finding-1): Outer at 9:00, 2.5 cm from nipple: There is no sonographic abnormality to account for concern by the patient. Left (finding-3): Outer at 3:00, 5 cm from nipple, measuring 0.8 x 0.3 x 0.4 cm - previously measuring (11/04/2022) 0.7 x 0.3 x 0.4 cm: Correlating with findings on mammogram, there are clustered microcysts. This finding has demonstrated two years of stability and is consistent with a benign etiology. Left (finding-2): Central, Retroareolar: Underlying the surface marker, there is no sonographic abnormality to account for concern by the patient of nipple symptoms. IMPRESSION: Right * No evidence of malignancy. Left * No evidence of malignancy with benign findings. RECOMMENDATIONS Bilateral * Clinical follow-up is recommended, and further management of palpable abnormalities or other focal signs or symptoms should be based on the results of clinical evaluation. If palpable abnormality or other concerning symptom persists or progresses, further clinical evaluation should be considered. * Annual screening mammography. COMMENTS: Findings and recommendations were conveyed to the patient during today's evaluation. OVERALL ASSESSMENT CATEGORY BI-RADS-2: Benign. The [employer] recommends annual screening mammography beginning at age 40 for women with average risk of breast cancer. ELECTRONICALLY SIGNED: Lucille Mckeon M.D. on 02/06/2025 at 12:02:01 PM PT Interpreting Station ID: [id number]
== END ==
PROVIDERS: Family Provider Family Medicine; PCP Family Medicine; Referring Provider Family Medicine; Visit Provider Family Medicine
DX: N64.59 Other signs and symptoms in breast (principal); Z80.3 Family history of malignant neoplasm of breast; Q83.9 Congenital malformation of breast, unspecified
CPT/HCPCS: 76642; 77066; G0279